=== PATIENT | female | born 1980 | race Caucasian/White ===

== ENCOUNTER → 2018-09-28 | Outpatient (CLI) | payer BC ==
--- NOTE | 2018-09-28 08:24 | MM ---
Reason for exam: screening (asymptomatic). Baseline mammogram. History: Taking hormonal contraceptives for 4 years beginning at age 34. Physical Findings: Nurse did not find any significant physical abnormalities on exam. MG Screening Mammo w CAD Bilateral CC and MLO view(s) were taken. The breast tissue is heterogeneously dense. This may lower the sensitivity of mammography. No suspicious abnormality. These results were verbally communicated with the patient and result sheet given to the patient on 09/28/18. ASSESSMENT: Negative, BI-RAD 1 RECOMMENDATION: Routine screening mammogram of both breasts at age 42. (or sooner if clinically indicated)
== END | disposition home or self-care (01) ==
LOC: RADMAMWWP 06:50
PROVIDERS: ATTEND Obstetrics & Gynecology
DX: Z12.31 Encounter for screening mammogram for malignant neoplasm of breast (principal)
CPT/HCPCS: 77067

== ENCOUNTER → 2019-09-12 | Outpatient (CLI) | payer OTHER ==
--- NOTE | 2019-09-12 16:59 | US ---
EXAMINATION TYPE: US thyroid st tissue head/neck DATE OF EXAM: 09/12/2019 COMPARISON: NONE CLINICAL HISTORY: E04.1 non-toxic single nodule. GLAND SIZE: Right Lobe: 5.2 x 1.5 x 1.4 cm Overall Parenchyma: homogenous Left Lobe: 5.3 x 1.3 x 1.7 cm Overall Parenchyma: homogeneous Isthmus Thickness: 0.2 cm NODULES RIGHT: # of nodules measured on right: 0 LEFT: # of nodules measured on left: 0 ISTHMUS: # of nodules measured in the isthmus: 0 Bilateral neck scanned, no evidence of lymphadenopathy. Homogeneous normal-sized thyroid without discrete nodule.. IMPRESSION: Unremarkable study.
== END | disposition home or self-care (01) ==
LOC: RADUSWWP 16:08
PROVIDERS: ATTEND Family Medicine
DX: E04.1 Nontoxic single thyroid nodule (principal)
CPT/HCPCS: 76536

== ENCOUNTER → 2021-05-08 | Outpatient (CLI) | payer OTHER ==
--- NOTE | 2021-05-08 09:09 | US ---
EXAMINATION TYPE: Transabdominal DATE OF EXAM: 05/08/2021 8:49 AM COMPARISON: NONE CLINICAL HISTORY: Z36.87 enctr for antemnatal screening dates. Confirm dates EXAM PERFORMED: Transabdominal (TA) EXAM MEASUREMENTS: GESTATIONAL AGE / DATING Physician Established: Not yet established Dates by LMP: (8 weeks/1 days) EDC: 12/17/2021 Dates by First Scan: No previous this is first scan Dates by Current Scan for: ( 8 weeks/5 days) EDC: 12/13/2021 MATERNAL ANATOMY Uterus: 10.6 x 6.3 x 7.6cm Right Ovary: 3.0 x 1.8 x 2.1cm Left Ovary: 3.2 x 2.2 x 2.2cm Post CDS / Adnexa: wnl Presence of free fluid: no Presence of corpus luteal cyst: left ovary: 1.9 x 1.6 x 1.5cm Presence of subchorionic bleed: no GESTATION / SURVEY CRL: 2.1cm (8 weeks/5 days) Yolk Sac (normal less than 6mm): 4.6mm Heart Rate: 167 bpm Rhythm: Normal IUP: Viable IUP Date of LMP: 03/12/2021 IMPRESSION: Single viable intrauterine as noted. Left ovarian corpus luteal cyst.
== END | disposition home or self-care (01) ==
LOC: RADUSWWP 08:14
PROVIDERS: ATTEND Obstetrics & Gynecology
DX: Z36.87 Encounter for antenatal screening for uncertain dates (principal)
CPT/HCPCS: 76801

== ENCOUNTER → 2021-10-20 | Outpatient (CLI) | payer BC, OTHER | END | disposition home or self-care (01) | LOC: LABWHC1 11:20 | PROVIDERS: ATTEND Obstetrics & Gynecology | DX: Z36.9 Encounter for antenatal screening, unspecified (principal) | CPT/HCPCS: 36415; 82950 ==

== ENCOUNTER 2021-12-06 21:50 | Outpatient (CLI) | payer BC, OTHER ==
[2021-12-06 23:06] VITALS: BP 123/64; PULSE 74; RESP 17; TEMP 97.1
--- NOTE | 2021-12-07 11:08 | P.MSEPDOC ---
Presenting Problems - Arrival Data Date of Arrival on Unit: 12/06/21 Time of Arrival on Unit: 21:50 Mode of Transport: Ambulatory - Complaint OB-Reason for Admission/Chief Complaint: Decreased Movement Comment: Pt presents to triage with c/o decreased movement. Last felt movement was around 0830 this morning Medical History - Information : 4 Para: 2 Term: 2 : 0 Abortions: Spontaneous or Elective: 1 Number of Living Children: 2 - Gestational Age Gestational Age by ANNE MARIE (wks/days): 38 Weeks and 3 Days - History Complications: No Care Review of Systems - Review of Systems Constitutional: No problems Breast: No problems ENT: No problems Cardiovascular: No problems Respiratory: No problems Gastrointestinal: No problems Genitourinary: No problems Musculoskeletal: No problems Neurological: No problems Skin: No problems Vital Signs - Temperature Temperature: 97.1 F Temperature Source: Temporal Artery Scan - Pulse Pulse Oximetery Pulse Rate: 74 Pulse Assessment Method: Pulse Oximetry - Respirations Respiratory Rate: 17 Oxygen Delivery Method: Room Air O2 Sat by Pulse Oximetry: 100 - Blood Pressure Right Arm Blood Pressure: 123/64 Blood Pressure Mean: 83 Blood Pressure Source: Automatic Cuff Medical Screen Scoring - Assessment - Baby A Baseline FHR: 125 Heart Rate - NICHD Category: Category I (Normal) NST: Reactive Physician Notification - Physician Notified Physician Notified Date: 12/06/21 Physician Notified Time: 22:43 Physician: Tobi Wade New Order Received: Yes - Notification Comment Comment: RN spoke with Dr. Wade regarding triage pt c/o decreased movement since 0830 this morning. Reported on maternal vital signs, category 1 FHT, reactive NST, irregular contx, handheld button given and pressed by pt when movement felt which has been pressed 7 times, and pt is scheduled on Wednesday for . Orders received for pt to be discharged home. Maternal Triage Index - Maternal Triage Index Presenting for scheduled procedure w/no complaint: No - Stat/Priority 1 Stat Priority 1: No - Urgent/Priority 2 Urgent Priority 2: Yes Provider Notified: Tobi Wade Provider Notified Time: 22:21 Criteria Met for Priority 2: C/o decreased movement Disposition - Disposition OB Disposition: Discharge to home, Written follow up instructions reviewed Discharge Date: 12/06/21 Discharge Time: 22:48 I agree with the RN Medical Screening Exam: Yes Physician's MSE Comment: I have neither seen nor examined the patient. Case reviewed; plan agreed upon as documented in EMR&OBIX.: Yes Diagnosis: RELATED CONDITIONS, UNSPECIFIED, THIRD TRIMESTER
== END 2021-12-06 22:48 | disposition home or self-care (01) ==
LOC: FBPOP 21:50
PROVIDERS: ATTEND Obstetrics & Gynecology
DX: O26.893 Other specified pregnancy related conditions, third trimester (principal); Z3A.38 38 weeks gestation of pregnancy
CPT/HCPCS: 59025; 99213

== ENCOUNTER 2021-12-10 06:00 | Inpatient (IN) | payer BC, OTHER ==
[2021-12-10] MEDS ORDERED: LIDOCAINE 0.5% (PF) 5 MG/ML (50 ML SDV) SQ PRN (06:27)
[2021-12-10] MEDS ORDERED: METHYLERGONOVINE 0.2 MG/ML 1 ML AMP IM PRN (06:27)
[2021-12-10] MEDS ORDERED: CARBOPROST TROMETHAMINE 250 MCG/ML 1 ML AMP IM PRN (06:27)
[2021-12-10] MEDS ORDERED: TERBUTALINE 1 MG/ML VIAL SQ PRN (06:27)
[2021-12-10] MEDS ORDERED: OXYTOCIN 10 UNIT/ML 1 ML VIAL IM PRN (06:27)
[2021-12-10] MEDS ORDERED: OXYTOCIN 30 UNITS/500 ML NS 30 UNIT in SALINE 1 500ML.BAG IV SCH ×2 (06:30→19:00)
[2021-12-10] MEDS: LACTATED RINGERS 1,000 ML IV SCH ×3 (06:41→15:08)
[2021-12-10 06:56] LABS: Basophils # (A) 0.1 k/uL (0-0.2); Basophils % (A) 1 %; Eosinophils # (A) 0.3 k/uL (0-0.7); Eosinophils % (A) 3 %; HCT 37.8 % (34.0-46.0); HGB 13.5 gm/dL (11.4-16.0); Lymphocytes # (A) 2.2 k/uL (1.0-4.8); Lymphocytes % (A) 23 %; MCH 34.2 pg (25.0-35.0); MCHC 35.6 g/dL (31.0-37.0); Mean Platelet Volume 8.6; Monocytes # (A) 0.5 k/uL (0-1.0); Monocytes % (A) 5 %; Neutrophils # (A) 6.5 k/uL (1.3-7.7); Neutrophils % (A) 67 %; Platelet Count 187 k/uL (150-450); RBC 3.93 m/uL (3.80-5.40); RDW 13.2 % (11.5-15.5); WBC 9.8 k/uL (3.8-10.6)
[2021-12-10] MEDS ORDERED: BUTORPHANOL 1 MG/ML 1 ML VIAL IV PRN (08:45)
--- NOTE | 2021-12-10 08:52 | P.HPOB ---
History of Present Illness H&P Date: 12/10/21 Chief Complaint: 39+ weeks, elective induction, previous section patient is a 41-year-old 4 para 2011 who is admitted at 39-0/7 weeks as established by last menstrual period and confirmed by 8 week ultrasound. She is admitted for elective induction and trial of labor having undergone a previous section. Her first was delivered vaginally and was followed by a significantly larger baby requiring a delivery for arrest of dilation. She has requested vaginal trial of labor. Her has been otherwise uncomplicated. She does fall into the category of advanced maternal age and declined trisomy testing. She has requested tubal ligation should she undergo section. Group B strep status is negative. Obstetrical history: 4 para 2011 with 1 previous normal spontaneous vaginal delivery followed by a section. She has requested this . She did have one early miscarriage. Current statistics are listed in history present illness. EDC of 12/17/2021 was established by last menstrual period and confirmed by 8 week ultrasound. Laboratory workup demonstrates a blood type of A+ with a negative antibody screen. Rubella status is immune. The remainder of the laboratory workup was within normal limits. Early Glucola as well as second trimester Glucola were within normal limits. Group B strep status is negative. Gynecologic history: Unremarkable with no history of any infections to include STDs. Review of Systems review of systems is confined to history of present illness. Past Medical History Past Medical History: No Reported History History of Any Multi-Drug Resistant Organisms: None Reported Past Surgical History: Section Additional Past Surgical History / Comment(s): D&C 2012, wisdom teeth 2001 Past Anesthesia/Blood Transfusion Reactions: No Reported Reaction Past Psychological History: Depression Smoking Status: Never smoker Past Alcohol Use History: None Reported Past Drug Use History: None Reported - Past Family History Mother Family Medical History: No Reported History, Unable to Obtain Medications and Allergies Home Medications Medication Instructions Recorded Confirmed Type Hxv-Pmpj-Ddndr Acid 1 cap PO DAILY 01/23/14 12/10/21 History [-U Capsule (formulary)] Aspirin [Adult Low Dose Aspirin EC] 81 mg PO DAILY 12/06/21 12/10/21 History buPROPion SR [Wellbutrin SR] 150 mg PO BID 12/06/21 12/10/21 History Allergies Allergy/AdvReac Type Severity Reaction Status Date / Time No Known Allergies Allergy Verified 12/10/21 06:27 Exam Vital Signs Temp Pulse Resp BP Pulse Ox 12/10/21 06:33 97.2 F L 76 18 122/56 99 Intake and Output 12/09/21 12/10/21 12/10/21 22:59 06:59 14:59 Other: Weight 91.626 kg in general, this is well-developed, well-nourished white female in no acute distress. Her heart has a regular rhythm and rate without murmur. Her lungs are clear to auscultation bilaterally in all salcedo. Her abdomen is gravid, nondistended, has normal active bowel sounds, soft, nontender, without any palpable masses aside from uterine fundus. Her extremities are without any cyanosis, clubbing, or significant edema and are nontender to palpation bilaterally. Digital cervical examination demonstrates her to be 1-1/2 cm dilated, 50% effaced, the vertex in presentation at -3 station. Artificial rupture of membranes is carried out demonstrating clear fluid. Results Result Diagrams: 12/10/21 06:40 Assessment and Plan (1) Term Current Visit: Yes Status: Acute Code(s): Z34.90 - ENCNTR FOR SUPRVSN OF NORMAL , UNSP, UNSP TRIMESTER SNOMED Code(s): 65053687 (2) Previous section Current Visit: Yes Status: Acute Code(s): Z98.891 - HISTORY OF UTERINE SCAR FROM PREVIOUS SURGERY SNOMED Code(s): 850568134 Plan: the patient is admitted for trial of labor, Pitocin has been started and she has undergone artificial rupture membranes per and she will have close maternal and surveillance and expectant management will be practiced. She is a good candidate for either IV or epidural analgesia, whichever she may choose.
[2021-12-10] MEDS ORDERED: ROPIVACAINE 5 MG/ML 20 ML AMPULE ONE (13:26)
[2021-12-10] MEDS ORDERED: fentaNYL (PF) 50 MCG/ML 5 ML AMP ONE (13:26)
[2021-12-10] MEDS ORDERED: SODIUM CHLORIDE 0.9% 100 ML BAG ONE (13:26)
[2021-12-10] MEDS ORDERED: ROPIVACAINE 100 MG, fentaNYL (PF). 200 MCG in SODIUM CHLORIDE 0.9% 76 ML EPIDURAL ONE (13:44)
[2021-12-10] MEDS ORDERED: LANOLIN CREAM 5 GM TUBE TOPICAL PRN (18:52)
[2021-12-10] MEDS ORDERED: ZOLPIDEM 5 MG TAB PO PRN (18:52)
[2021-12-10] MEDS ORDERED: diphenhydrAMINE 50 MG CAP PO PRN (18:52)
[2021-12-10] MEDS ORDERED: IBUPROFEN 600 MG TAB PO PRN (18:52)
[2021-12-10] MEDS ORDERED: SIMETHICONE 80 MG CHEWABLE PO PRN (18:52)
[2021-12-10] MEDS ORDERED: HYDROcodone/APAP 7.5-325MG 1 EACH TAB PO PRN (18:52)
[2021-12-10] MEDS ORDERED: HYDROcodone/APAP 5-325MG 1 EACH TAB PO PRN (18:52)
[2021-12-10] MEDS ORDERED: BENZOCAINE/MENTHOL SPRAY 1 GM/SPRAY AEROSOL TOPICAL PRN (18:52)
[2021-12-10] MEDS ORDERED: HYDROCORTISONE 2.5% RECTAL CREAM 30 GM TUBE RECTAL PRN (18:52)
[2021-12-10] MEDS ORDERED: diphenhydrAMINE 50 MG/ML 1 ML VIAL IVP PRN ×2 (18:52)
[2021-12-10] MEDS ORDERED: diphenhydrAMINE 25 MG CAP PO PRN (18:52)
--- NOTE | 2021-12-10 18:56 | P.PROBDLV ---
Vaginal Delivery Note - . Vaginal Delivery Note: the patient is a 41-year-old 4 para 2011 admitted at 39-0/7 weeks by good dating parameters. She is admitted for an elective induction with a history of a previous section after having had a normal in her first delivery. Her has been entirely uncomplicated and group B strep status is negative. She had requested vaginal trial of labor to which I agreed. Risks and complications have been discussed in depth. On labor and delivery, the patient was noted to have category 1 heart rate tracing and had Pitocin augmentation started followed by artificial rupture membranes for clear fluid. She made progress to the active phase of labor at which time an epidural catheter was placed for analgesia. She then progressed steadily through the active phase of labor to complete. She pushed over the course of 2 contractions to a normal spontaneous vaginal delivery, successful vaginal after section, of a viable 6 lbs. 10 oz. baby boy with Apgars of 8 at 1 minute and 9 at 5 minutes delivered in the direct occiput anterior position. There was a loose nuchal cord 1 which was reduced following delivery of the . The placenta delivered spontaneously, intact, and grossly normal with a grossly normal, centrally inserted three-vessel cord. There were no significant lacerations of the perineum vagina or cervix. She did have 2 vulvar skin tags which were removed under the epidural analgesia. The skin tags were discarded. estimated blood loss for the case is approximately 100 mL. There were no complications. All sponge, instrument, needle counts were correct. Both mother and are resting comfortably in recovery.
[2021-12-10] MEDS: ACETAMINOPHEN TAB 325 MG TAB PO PRN (22:48)
[2021-12-10] MEDS: SENNOSIDES-DOCUSATE SODIUM 1 EACH TAB PO SCH (22:48)
[2021-12-11 00:20] VITALS: RESP 18
[2021-12-11] MEDS: ACETAMINOPHEN TAB 325 MG TAB PO PRN ×2 (03:59→08:31)
[2021-12-11 05:59] LABS: Basophils % (A) 0 %; Eosinophils # (A) 0.2 k/uL (0-0.7); Eosinophils % (A) 2 %; HCT 36.1 % (34.0-46.0); HGB 12.2 gm/dL (11.4-16.0); Lymphocytes # (A) 2.3 k/uL (1.0-4.8); Lymphocytes % (A) 19 %; MCH 33.3 pg (25.0-35.0); MCHC 33.8 g/dL (31.0-37.0); MCV 98.4 fL (80.0-100.0); Mean Platelet Volume 9.2; Monocytes # (A) 0.4 k/uL (0-1.0); Monocytes % (A) 4 %; Neutrophils # (A) 9.1 k/uL (1.3-7.7); Neutrophils % (A) 75 %; Platelet Count 159 k/uL (150-450); RBC 3.67 m/uL (3.80-5.40); RDW 13.1 % (11.5-15.5); WBC 12.2 k/uL (3.8-10.6)
[2021-12-11] MEDS: SENNOSIDES-DOCUSATE SODIUM 1 EACH TAB PO SCH (08:32)
--- NOTE | 2021-12-11 08:42 | P.DS ---
Providers Date of admission: 12/10/21 06:23 Expected date of discharge: 12/11/21 Attending physician: Tobi Wade Primary care physician: Stated None - Discharge Diagnosis(es) (1) Term Current Visit: Yes Status: Acute (2) Previous section Current Visit: Yes Status: Acute Hospital Course: the patient is a 41 year 4 para 2012 admitted at 39-0/7 weeks by good dating parameters for an elective induction. Her has been uncomplicated though she does have a history of a previous vaginal delivery followed by a delivery and has requested for this . was otherwise uncomplicated. She falls into the category of advanced maternal age and declined testing. Group B strep status is negative. On labor and delivery, all signs reassuring. She had Pitocin started and underwent artificial rupture of membranes for clear fluid. She progressed the active phase of labor and had an epidural placed for analgesia. She progressed steadily through the active phase to complete and pushed to a normal spontaneous vaginal delivery of a viable 6 lbs. 10 oz. baby boy with Apgars of 8 at 1 minute and 9 at 5 minutes. Her course was unremarkable with vital signs remaining stable and her temperature was afebrile throughout. She was deemed stable for discharge on day #1 and was discharged home to follow-up in the office in 6 weeks' time routinely. Discharge instructions included calling for any significantly increased bleeding or foul-smelling lochia, significantly increased fever abdominal pain, perineal complaints, breast complaints, or anything else that concerned her. She is additionally instructed to have nothing in the vagina for at least 6 weeks time to include intercourse. She understood all of her instructions and agrees to follow up as noted above. Discharge medications included continued vitamins as well as ygak-bxc-gmrzcpo analgesic pain medications. Maternal blood type is A+ and rubella status is immune. Procedures: #1. Pitocin induction #2. Artificial rupture of membranes #3. Epidural analgesia #4. Normal spontaneous vaginal delivery Patient Condition at Discharge: Stable Plan - Discharge Summary New Discharge Prescriptions: No Action Lck-Frtg-Ugmpb Acid [-U Capsule (formulary)] 1 cap PO DAILY buPROPion SR [Wellbutrin SR] 150 mg PO BID Aspirin [Adult Low Dose Aspirin EC] 81 mg PO DAILY Discharge Medication List Jrs-Kgdm-Yatlz Acid [-U Capsule (formulary)] 1 cap PO DAILY 01/23/14 [History] Aspirin [Adult Low Dose Aspirin EC] 81 mg PO DAILY 12/06/21 [History] buPROPion SR [Wellbutrin SR] 150 mg PO BID 12/06/21 [History] Follow up Appointment(s)/Referral(s): Tobi Wade MD [STAFF PHYSICIAN] - 6 Weeks Discharge Disposition: HOME SELF-CARE
[2021-12-11 14:51] VITALS: BP 109/68; PULSE 74; TEMP 98
== END 2021-12-11 19:05 | disposition home or self-care (01) | DRG 768 ==
LOC: 4FBP 06:23
PROVIDERS: ADMIT Obstetrics & Gynecology; ATTEND Obstetrics & Gynecology
PROC: 10E0XZZ Delivery of Products of Conception, External Approach (ICD-10-PCS; principal; 2021-12-10)
PROC: 0UBMXZZ Excision of Vulva, External Approach (ICD-10-PCS; 2021-12-10)
PROC: 4A0HXCZ Measurement of Products of Conception, Cardiac Rate, External Approach (ICD-10-PCS; 2021-12-10)
PROC: 3E033VJ Introduction of Other Hormone into Peripheral Vein, Percutaneous Approach (ICD-10-PCS; 2021-12-10)
PROC: 10907ZC Drainage of Amniotic Fluid, Therapeutic from Products of Conception, Via Natural or Artificial Opening (ICD-10-PCS; 2021-12-10)
DX: O34.211 Maternal care for low transverse scar from previous cesarean delivery (principal); Z37.0 Single live birth; O69.81X0 Labor and delivery complicated by cord around neck, without compression, not applicable or unspecified; F32.A Depression, unspecified; O99.72 Diseases of the skin and subcutaneous tissue complicating childbirth; N90.89 Other specified noninflammatory disorders of vulva and perineum; O99.344 Other mental disorders complicating childbirth; Z3A.39 39 weeks gestation of pregnancy; Z79.82 Long term (current) use of aspirin
CPT/HCPCS: 85025; 86850; 86900; 86901

== ENCOUNTER → 2024-08-01 | Outpatient (CLI) | payer BC, OTHER ==
--- NOTE | 2024-08-02 07:32 | MM ---
Reason for Exam: Screening (asymptomatic). Last mammogram was performed 5 year(s) and 10 month(s) ago. Patient History: Menarche at age 13. First Full-Term at age 30. Currently using Hormonal Contraceptives, beginning at age 34 for 4 years. Last menstrual period: 07/26/2024 Risk Values: Jasmin 5 year model risk: 0.8%. NCI Lifetime model risk: 11.9%. Prior Study Comparison: 09/28/2018 Bilateral Screening Mammogram, [facility]. Tissue Density: There are scattered areas of fibroglandular density. Findings: Analyzed By CAD. There is no suspicious group of microcalcifications or new suspicious mass in either breast. Overall Assessment: Negative, BI-RAD 1 Management: Screening Mammogram of both breasts in 1 year. . Patient should continue monthly self-breast exams. A clinical breast exam by your physician is recommended on an annual basis. This exam should not preclude additional follow-up of suspicious palpable abnormalities. Note on Jasmin scores and lifetime risk: 1. A Jasmin score greater than 3% is considered moderate risk. If this is the case, consider specialist referral to assess eligibility for a risk reducing agent. 2. If overall lifetime risk for the development of breast cancer is 20% or higher, the patient may qualify for future screening with alternating mammogram and breast MRI. [facility], , 08/02/2024 7:29 AM. Electronically signed and approved by: Kal Coto M.D.
== END | disposition home or self-care (01) ==
LOC: RADMAMWWP 16:31
PROVIDERS: ATTEND Family Medicine
DX: Z12.31 Encounter for screening mammogram for malignant neoplasm of breast (principal); R92.323 Mammographic fibroglandular density, bilateral breasts; Z92.0 Personal history of contraception
CPT/HCPCS: 77063; 77067

== ENCOUNTER 2024-08-26 17:48 | Emergency (ER) | payer BC, OTHER ==
[2024-08-26 17:57] VITALS: PULSE 91
--- NOTE | 2024-08-26 18:33 | ED ---
Wound/Laceration HPI - General Chief Complaint: Wound/Laceration Stated Complaint: R foot lac Time Seen by Provider: 08/26/24 18:05 Source: patient, RN notes reviewed Mode of arrival: ambulatory Limitations: no limitations - History of Present Illness Initial Comments: This is a 44-year-old female presenting with for right ankle/foot laceration 1 hour prior to ER arrival. Patient states she excellently struck her right foot on the storm door, causing a laceration with minimal bleeding. States tetanus vaccination is not up-to-date. Denies any other significant injury with no difficulty with ambulating. Onset/Timin -: hour(s) Extremity Location: Right: Foot Place: home Patient Tetanus UTD: No Context: accidental Associated Symptoms: none Treatments Prior to Arrival: bandage - Related Data Home Medications Medication Instructions Recorded Confirmed Prq-Ksrm-Uztak Acid 1 cap PO DAILY 01/23/14 12/10/21 [-U Capsule (formulary)] Aspirin [Adult Low Dose Aspirin EC] 81 mg PO DAILY 12/06/21 12/10/21 buPROPion SR [Wellbutrin SR] 150 mg PO BID 12/06/21 12/10/21 Previous Rx's Medication Instructions Recorded Cephalexin [Keflex] 500 mg PO Q6HR 1 Days #12 cap 08/26/24 Allergies Allergy/AdvReac Type Severity Reaction Status Date / Time No Known Allergies Allergy Verified 08/26/24 17:57 Review of Systems ROS Statement: Those systems with pertinent positive or pertinent negative responses have been documented in the HPI. ROS Other: All systems not noted in ROS Statement are negative. Past Medical History Past Medical History: No Reported History History of Any Multi-Drug Resistant Organisms: None Reported Past Surgical History: Section Additional Past Surgical History / Comment(s): D&C 2012, wisdom teeth 2002 Past Anesthesia/Blood Transfusion Reactions: No Reported Reaction Past Psychological History: Depression Smoking Status: Never smoker Past Alcohol Use History: None Reported Past Drug Use History: None Reported - Past Family History Mother Family Medical History: No Reported History, Unable to Obtain General Exam Limitations: no limitations General appearance: alert, in no apparent distress Head exam: Present: atraumatic, normocephalic, normal inspection Eye exam: Present: normal appearance, PERRL, EOMI. Absent: scleral icterus, conjunctival injection, periorbital swelling ENT exam: Present: normal exam, mucous membranes moist Neck exam: Present: normal inspection. Absent: tenderness, meningismus, lymphadenopathy Respiratory exam: Present: normal lung sounds bilaterally. Absent: respiratory distress, wheezes, rales, rhonchi, stridor Cardiovascular Exam: Present: regular rate, normal rhythm, normal heart sounds. Absent: systolic murmur, diastolic murmur, rubs, gallop, clicks GI/Abdominal exam: Present: soft, normal bowel sounds. Absent: distended, ten derness, guarding, rebound, rigid Extremities exam: Present: full ROM, normal capillary refill, other (1.5 cm triangular laceration noted on medial aspect of right heel without active bleeding, foreign body or surrounding erythema). Absent: tenderness, pedal edema, joint swelling, calf tenderness Back exam: Present: normal inspection Neurological exam: Present: alert, oriented X3, CN II-XII intact Psychiatric exam: Present: normal affect, normal mood Skin exam: Present: warm, dry, intact, normal color. Absent: rash Course Vital Signs 08/26/24 17:53 Temperature 98.3 F Pulse Rate 91 Respiratory 17 Rate Blood Pressure 116/75 O2 Sat by Pulse 99 Oximetry Procedures - Laceration Laceration #1 Consent Obtained: verbal consent Indication: laceration Site: foot Size (cm): 2 Description: avulsion Depth: simple, single layer Anesthetic Used: lidocaine 1% Anesthesia Technique: local infiltration Amount (mls): 3 Pre-repair: wound explored, irrigated extensively Type of Sutures: nylon Size of Sutures: 5-0 Number of Sutures: 6 Technique: simple, interrupted Patient Tolerated Procedure: well, no complications Medical Decision Making - Medical Decision Making Was pt. sent in by a medical professional or institution (, PA, COURSE DEVELOPER, urgent care, hospital, or [facility]...) When possible be specific @ -[No] Did you speak to anyone other than the patient for history (EMS, parent, family, police, friend...)? What history was obtained from this source @ -[No] Did you review nursing and triage notes (agree or disagree)? Why? @ -[I reviewed and agree with nursing and triage notes] Were old charts reviewed (outside hosp., previous admission, EMS record, old EKG, old radiological studies, urgent care reports/EKG's, [facility] records)? Report findings @ -[No old charts were reviewed] Differential Diagnosis (chest pain, altered mental status, abdominal pain women, abdominal pain men, vaginal bleeding, weakness, fever, dyspnea, syncope, headache, dizziness, GI bleed, back pain, seizure, CVA, palpatations, mental health, musculoskeletal)? @ -Differential Musculoskeletal Muscular strain, contusion, ligament sprain, fracture, arthritis, septic arthritis, bursitis, cellulitis, muscle spasm, nerve compression, DVT, arterial occlusion, herpes zoster, electrolyte abnormality, tumor.... This is not meant to be in all inclusive list EKG interpreted by me (3pts min.). @ -Not done X-rays interpreted by me (1pt min.). @ -[None done] CT interpreted by me (1pt min.). @ -[None done] U/S interpreted by me (1pt. min.). @ -[None done] What testing was considered but not performed or refused? (CT, X-rays, U/S, labs)? Why? @ -[None] What meds were considered but not given or refused? Why? @ -[None] Did you discuss the management of the patient with other professionals (professionals i.e. , PA, COURSE DEVELOPER, lab, RT, psych nurse, social worker school, nitroglycerin distributor, teacher, senior compliance officer, behavioral health case manager)? Give summary @ -[No] Was smoking cessation discussed for >3mins.? @ -[No] Was critical care preformed (if so, how long)? @ -[No] Were there social determinants of health that impacted care today? How? (Homelessness, low income, unemployed, alcoholism, drug addiction, transportation, low edu. Level, literacy, decrease access to med. care, residential, rehab)? @ -[No] Was there de-escalation of care discussed even if they declined (Discuss DNR or withdrawal of care, Hospice)? DNR status @ -[No] What co-morbidities impacted this encounter? (DM, HTN, Smoking, COPD, CAD, Cancer, CVA, ARF, Chemo, Hep., AIDS, mental health diagnosis, sleep apnea, morbid obesity)? @ -[None] Was patient admitted / discharged? Hospital course, mention meds given and route, prescriptions, significant lab abnormalities, going to OR and other pertinent info. @ -[hospital course] Undiagnosed new problem with uncertain prognosis? @ -[No] Drug Therapy requiring intensive monitoring for toxicity (Heparin, Nitro, Insulin, Cardizem)? @ -[No] Were any procedures done? @ -Laceration sutured under sterile conditions. See procedure note Diagnosis/symptom? @ -Laceration Acute, or Chronic, or Acute on Chronic? @ -Acute Uncomplicated (without systemic symptoms) or Complicated (systemic symptoms)? @ -Uncomplicated Side effects of treatment? @ -[No] Exacerbation, Progression, or Severe Exacerbation? @ -[No] Poses a threat to life or bodily function? How? (Chest pain, USA, SC, pneumonia, PE, COPD, DKA, ARF, appy, cholecystitis, CVA, Diverticulitis, Homicidal, Suicidal, threat to staff... and all critical care pts) @ -[No] Disposition Clinical Impression: Laceration Disposition: HOME SELF-CARE Condition: Good Instructions (If sedation given, give patient instructions): Care For Your Stitches (ED) Additional Instructions: Keep sutures clean with antibacterial soap and water at least twice daily along with Neosporin application and dressing change. Follow-up with medical facility in 10-14 days for suture removal. Prescriptions: Cephalexin [Keflex] 500 mg PO Q6HR 1 Days #12 cap Is patient prescribed a controlled substance at d/c from ED?: No Referrals: Barber Staton DO [Primary Care Provider] - 1-2 days Time of Disposition: 19:32
[2024-08-26] MEDS: DIPH,PERTUS(ACELL)TETVAC-LF 0.5 ML VIAL IM ONE (18:41)
[2024-08-26] MEDS: CEPHALEXIN 500 MG CAP PO STA (18:42)
[2024-08-26] MEDS: LIDOCAINE 1% INJ 10MG/ML (20 ML MDV) SQ STA (18:44)
[2024-08-26 19:49] VITALS: BP 107/72; RESP 18; TEMP 98.7
== END 2024-08-26 19:36 | disposition home or self-care (01) ==
LOC: EC 17:48
DX: S91.311A Laceration without foreign body, right foot, initial encounter (principal); Z23 Encounter for immunization; W22.09XA Striking against other stationary object, initial encounter
CPT/HCPCS: 90715; 99282; 90471; 12001; J2003